=== PATIENT | female | born 1950 | race Caucasian/White ===

== ENCOUNTER 2016-12-30 05:47 | Emergency (ER) | payer MEDICAID ==
[2016-12-30 05:48] VITALS: BMI 44.4
[2016-12-30 05:59] VITALS: BP 126/63; PULSE 87; RESP 18; TEMP 97.6; O2SAT 99
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
[2016-12-30] MEDS ORDERED: levoFLOXacin 500 MG TAB PO STA (06:11)
[2016-12-30] MEDS ORDERED: TraMADol/Apap 37.5/325 mg Tab PO STA (06:11)
== END 2016-12-30 06:58 | disposition home or self-care (01) ==
LOC: ED 05:47
DX: H66.91 Otitis media, unspecified, right ear (principal); H60.501 Unspecified acute noninfective otitis externa, right ear

== ENCOUNTER 2018-08-17 21:05 | Emergency (ER) | payer MEDICARE, MEDICAID ==
[2018-08-17 21:06] VITALS: BMI 33.3
[2018-08-17 21:22] VITALS: BP 137/58; PULSE 103; RESP 18; TEMP 97.7; O2SAT 97
[2018-08-17] MEDS ORDERED: TDAP Vaccine 0.5 mL Syr IM ONE (21:37)
[2018-08-17] MEDS ORDERED: Silver Sulfadiazine 1% Cream (25 gm) TP STA (21:37)
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
== END 2018-08-17 22:12 | disposition home or self-care (01) ==
LOC: ED 21:05
DX: T21.21XA Burn of second degree of chest wall, initial encounter (principal); X10.0XXA Contact with hot drinks, initial encounter; E11.9 Type 2 diabetes mellitus without complications; I10 Essential (primary) hypertension; Z23 Encounter for immunization